=== PATIENT | male | born 1955 | race Caucasian/White ===

== ENCOUNTER 2017-09-29 08:28 | Day surgery (SDC) | payer OTHER ==
[2017-09-24 15:40] VITALS: BMI 27.3
[2017-09-29] MEDS ORDERED: PROPOFOL 20 ML ONE ×2 (08:36)
[2017-09-29 08:47] VITALS: TEMP 98.2
[2017-09-29] MEDS ORDERED: LIDOCAINE HCL/PF 2% SDV 5ML VIAL ONE (08:53)
[2017-09-29 10:55] VITALS: BP 115/76; PULSE 72
== END 2017-09-29 09:55 | disposition home or self-care (01) ==
LOC: FASU-ENDO 08:28
PROVIDERS: ATTEND Internal Medicine Gastroenterology
PROC: 0DJD8ZZ Inspection of Lower Intestinal Tract, Via Natural or Artificial Opening Endoscopic (ICD-10-PCS; principal; 2017-09-29 08:51)
DX: Z12.11 Encounter for screening for malignant neoplasm of colon (principal)